=== PATIENT | female | born 1960 | race American Indian/Alaskan Native ===

== ENCOUNTER 2016-08-16 07:51 | Day surgery (SDC) | payer BC ==
[2016-08-16 09:00] LABS: Basophils % (Auto) 0.4 % (0.0-1.8); Eosinophils % (Auto) 3.5 % (0.0-4.3); Hematocrit 39.7 % (30.3-42.9); Hemoglobin 12.8 gm/dl (10.1-14.3); Mean Corpuscular HGB Conc 32 % (30-34); Mean Corpuscular Hemoglobin 29 pg (28-32); Mean Corpuscular Volume 90 fl (79-97); Platelet Count 153 K/mm3 (140-440); Red Blood Count 4.43 M/mm3 (3.65-5.03); Red Cell Distribution Width 14.2 % (13.2-15.2)
[2016-08-16] MEDS ORDERED: ECOTRIN PO ONE (09:00)
[2016-08-16] MEDS ORDERED: NACL 0.9% 500 ML 500 ML IV SCH (09:00)
[2016-08-16 09:10] LABS: INR 0.99 (0.87-1.13)
[2016-08-16 09:20] LABS: Anion Gap 15 mmol/L; Blood Urea Nitrogen 11 mg/dL (7-17); Calcium 8.8 mg/dL (8.4-10.2); Carbon Dioxide 27 mmol/L (22-30); Chloride 104.3 mmol/L (98-107); Glucose 102 mg/dL (65-100); Potassium 4.1 mmol/L (3.6-5.0); Sodium 142 mmol/L (137-145)
[2016-08-16] MEDS ORDERED: HEPARIN/NS 5000 UNIT/500ML(CATH LAB) 1,000 ML IR ONE (11:08)
[2016-08-16] MEDS ORDERED: XYLOCAINE 2% INFILTRATI ONE (11:09)
[2016-08-16] MEDS: SUBLIMAZE ONE ×2 (11:28→11:31)
[2016-08-16] MEDS: VERSED ONE ×2 (11:28→11:31)
[2016-08-16] MEDS: HEPARIN 10,000 UNITS/10 ML ONE ×2 (11:30→11:33)
[2016-08-16] MEDS: NITROGLYCERIN SYRINGE 3 ML ONE ×2 (11:30→11:33)
[2016-08-16] MEDS: CALAN ONE ×2 (11:30→11:33)
--- NOTE | 2016-08-16 11:55 | Short Stay Summary ---
Short Stay Documentation Date of service: 08/16/16 - History H&P: obtained from office - Allergies and Medications Current Medications: Allergies Penicillins Allergy (Verified 08/16/16 08:53) Hives Home Medications Medication Instructions Recorded Confirmed Last Taken Type Fluticasone/Vilanterol [Breo 1 puff INHALATION DAILY 08/16/16 08/16/16 Unknown History Ellipta 100-25 Mcg INH] Isosorbide Dinitrate [Isordil 10 mg PO BID 08/16/16 08/16/16 08/16/16 History Titradose] Omeprazole [Omeprazole] 40 mg PO DAILY 08/16/16 08/16/16 08/16/16 History Synthroid 150 mcg PO DAILY 08/16/16 08/16/16 08/15/16 History Active Medications Sodium Chloride (Nacl 0.9% 500 Ml) 500 mls @ 50 mls/hr IV DIRECT JOSE Stop: 08/16/16 18:59 Last Admin: 08/16/16 08:52 Dose: 50 mls/hr - Brief post op/procedure progress note Date of procedure: 08/16/16 Pre-op diagnosis: chest pain Post-op diagnosis: same Procedure: see report Anesthesia: local Estimated blood loss: none Pathology: none - Disposition Condition at discharge: Good - Discharge Diagnoses (1) Chest pain Status: Chronic Qualifiers: Chest pain type: unspecified Ischemic chest pain type: I Qualified Code(s ): R07.9 - Chest pain, unspecified (2) Obesity Status: Chronic Qualifiers: Obesity type: due to excess calories Obesity severity: O (3) Hypertension Status: Chronic Qualifiers: Hypertension type: essential hypertension Qualified Code(s): I10 - Essential (primary) hypertension Short Stay Discharge Plan Activity: advance as tolerated Diet: low fat, low cholesterol Follow up with: BUNNY CARLSON MD [Staff Physician] - 7 Days
[2016-08-16 14:05] VITALS: BP 130/72
--- NOTE | 2016-08-17 01:05 | Cardiac Catherization Report ---
This is a left heart catheterization being done on a 55-year-old female with recurrent pain on calcium channel blockers and nitrates despite being on negative stress test, has hypertension, obesity, chronic back issues partial relief with nitrates. Therefore left heart catheterization. Left heart catheterization performed via the right radial artery, sterile technique, local anesthesia, 6-Turkish radial sheath inserted. Left system engaged with JL3.5 catheter, 6-Turkish. FOLLOWING FINDINGS: Left main large and patent, bifurcates into large LAD that is patent from proximally and distally. Diagonal 1 is a medium caliber vessel. It is patent. Circumflex and AV groove is a large caliber vessel, patent. OM1 and OM2 are medium caliber vessels that are patent. RCA engaged JR4 catheter, is a large dominant vessel, is patent from proximally, distally bifurcates into a [id number] caliber PDA that is patent, small PLV that is patent. LV gram done in [facility] and YOU view shows normal LV function, LVEDP is 14 mmHg. LV is 150/14. Aortic is 150/89. No gradient across the aortic valve on pullback. 5-Turkish and 6-Turkish catheters were taken over a guidewire, 6-Turkish radial sheath was discontinued. Radial dressing applied. No hematoma. No bleeding. SUMMARY: 1. Normal coronaries right dominant system, large epicardial vessels. 2. Normal LV function, normal left end-diastolic pressure, most likely noncardiac chest pain. [facility]# [id number] [place]/[employer]
== END 2016-08-16 14:30 | disposition home or self-care (01) ==
LOC: OPU 07:51
PROVIDERS: ATTEND Internal Medicine
DX: R94.39 Abnormal result of other cardiovascular function study (principal); I10 Essential (primary) hypertension; K21.9 Gastro-esophageal reflux disease without esophagitis; E66.9 Obesity, unspecified; Z68.33 Body mass index [BMI] 33.0-33.9, adult; Z87.19 Personal history of other diseases of the digestive system; Z90.710 Acquired absence of both cervix and uterus; Z98.890 Other specified postprocedural states; Z79.899 Other long term (current) drug therapy; Z88.0 Allergy status to penicillin; Z88.7 Allergy status to serum and vaccine; Z72.89 Other problems related to lifestyle; Z83.3 Family history of diabetes mellitus; Z82.49 Family history of ischemic heart disease and other diseases of the circulatory system; Z82.61 Family history of arthritis; Z82.3 Family history of stroke
CPT/HCPCS: 36415; 80048; 85025; 85610; 85730; 93005; 93010; 93458; C1894; J1644; J2250; J3010; J7040; Q9967